=== PATIENT | female | born 1975 | race Caucasian/White ===

== ENCOUNTER 2017-03-02 05:43 | Emergency (ER) | payer BC ==
[2017-03-02 05:07] LABS: ASCORBIC ACID (UR NOT ORDER) NEG (NEG); BILIRUBIN, URINE NEGATIVE (NEG); ER URINALYSIS TAT 0 Hrs 00 Mins; KETONE, URINE NEGATIVE (NEG); LEUKOCYTE ESTERASE(NOT OR NEG (NEG); NITRITE (URINE) POS (NEG); WBC (NOT ORDERED) (RFLEX) 0 (0-5)
[2017-03-02 05:21] LABS: BUN (BLOOD UREA NITROGEN) 16 MG/DL (6-23); CALCIUM, SERUM 8.4 MG/DL (8.5-10.4); CHLORIDE, SERUM 109 MMOL/L (96-112); CO2 (CARBON DIOXIDE) 27 MMOL/L (24-34); CREATININE 0.99 MG/DL (0.55-1.02); GFR AFRICAN AMERICAN 83 ML/MIN (>=60); GFR NON AFRICAN AMERICAN 72 ML/MIN (>=60); GLUCOSE, SERUM 94 MG/DL (60-99); POTASSIUM, SERUM 4.1 MMOL/L (3.5-5.3); SODIUM, SERUM 144 MMOL/L (135-148)
[~2017-03-02 05:43] MED LIST: PROTONIX PO
== END 2017-03-02 05:45 | disposition home or self-care (01) ==
LOC: ER 05:43
PROVIDERS: Nurse Practitioner Acute Care
DX: N13.2 Hydronephrosis with renal and ureteral calculous obstruction (principal); K21.9 Gastro-esophageal reflux disease without esophagitis; Z88.5 Allergy status to narcotic agent; Z88.6 Allergy status to analgesic agent; Z79.899 Other long term (current) drug therapy
CPT/HCPCS: 74176; 80048; 81001; 96374; 99284; J1885

== ENCOUNTER 2017-03-04 15:53 | Observation (INO) | payer BC ==
--- NOTE | ~2017-03-04 | OP ---
Record Of Operation [facility] [address] [place]. [address] NAME: MIKEL JEFFERSON : 79 STATUS : ADM Javier PAT#: [id number] AGE: 41 ADM/REG DATE : 03/04/17 MR#: [id number] REPORT SERV DATE: 03/05/17 DICTATED BY: JOSS FIGUEROA DATE: 03/05/17 REPORT STATUS : Draft TRANSCRIBED BY: MODL DATE: 03/05/17 DATE OF PROCEDURE: 03/05/2017 PREOPERATIVE DIAGNOSIS: Left ureteral stone. POSTOPERATIVE DIAGNOSIS: Left ureteral stone. PROCEDURES PERFORMED: 1. Left ureteroscopy with stone extraction. 2. Cystoscopy, left retrograde pyelogram, left ureteral stent placement. SURGEON: Joss figueroa M.D. ANESTHESIA: General. COMPLICATIONS: None. DRAINS: None. SPECIMENS: Left ureteral stone for chemical analysis. INDICATION: Ms. Jefferson is a 41-year-old with a symptomatic 4 mm left distal ureteral stone. She has had flank pain and urinary urgency for one week. She presents for ureteroscopic treatment of the stone. TECHNIQUE: Informed consent was obtained. She was brought to the operating room. General anesthesia was administered. Genitals and perineum were prepped and draped in the lithotomy position in a sterile fashion. Rigid cystoscopy was performed. The urethra was normal. The bladder was unremarkable. There was a slight cystocele. Clear efflux on the right, sluggish efflux on the left. On fluoroscopic images, there was a 4 mm calcification over the expected course of the left distal ureter. A wire was passed. The left ureter was cannulated and the calcification was seen to be within the ureter. I passed the wire up to the kidney. I removed the cystoscope. A rigid ureteroscope was advanced over the wire. The left ureteral orifice did not require dilation. The scope passed atraumatically, identified the stone. The wire was removed. I basketed and extracted the left distal ureteral stone with an NGage basket. The stone was sent for chemical analysis. Rigid cystoscopy was performed, and a left retrograde pyelogram was performed. Left retrograde pyelogram showed minimal left hydronephrosis and hydroureter. All contrast drained promptly from the left ureter. I did not think that a ureteral stent will be necessary. The bladder was drained. The cystoscope was removed. She will be discharged to home later today. Record Of Operation [facility] [address] [place]. [address] NAME: MIKEL JEFFERSON : 79 STATUS : ADM Javier PAT#: [id number] AGE: 41 ADM/REG DATE : 03/04/17 MR#: [id number] REPORT SERV DATE: 03/05/17 DICTATED BY: JOSS FIGUEROA DATE: 03/05/17 REPORT STATUS : Draft TRANSCRIBED BY: LULÚ DATE: 03/05/17 [facility] Joss Figueroa M.D. / [id number] CC: Wayne Molina II, M.D.
--- NOTE | ~2017-03-04 | HP ---
History And Physical [id number] [place]. [address] NAME: MIKEL JEFFERSON : 79 STATUS : ADM Javier PAT#: [id number] AGE: 41 ADM/REG DATE : 03/04/17 MR#: [id number] REPORT SERV DATE: 03/05/17 DICTATED BY: JOSS FIGUEROA DATE: 03/04/17 REPORT STATUS : Draft TRANSCRIBED BY: MODL DATE: 03/04/17 DATE OF ADMISSION: 03/04/2017 CHIEF COMPLAINT: Left pelvic pain. HISTORY OF PRESENT ILLNESS: Mrs. Jefferson is a 41-year-old with no history of stones. She has had a left pelvic pain, left flank pain, and vaginal pain for the last week. A CT scan two days ago in the ER showed an obstructing left distal ureteral stone, 4 mm. She re- presented to the emergency room today with complaints of lower extremity swelling. Her creatinine was normal. She did take a diuretic for edema previously. She has held this with this recent stone. She has had no fever or chills. There has been nausea but no vomiting. She saw something small, 1-2 mm in the toilet today in the emergency room. PAST MEDICAL HISTORY: Tubal ligation, tonsillectomy, and kidney stones. MEDICATIONS: Tamsulosin, oral narcotic. ALLERGIES: NONE KNOWN. SOCIAL HISTORY: . Nonsmoker. REVIEW OF SYSTEMS: No chest pain, fevers, chills, or vomiting. Positive nausea, positive left flank pain intermittently, positive urinary frequency, positive dysuria, positive pelvic/vaginal pain. PHYSICAL EXAMINATION: Vitals per intake sheet: GENERAL: Pleasant, nontoxic appearing 41-year-old, in no acute distress. EARS: Sclerae anicteric. LUNGS: Clear. HEART: Regular rate and rhythm. CHEST: Clear anteriorly. ABDOMEN: Soft, nontender, nondistended. Obese, no palpable mass. No right or left CVA tenderness. Bladder is not distended. She is oriented to person, place, time, and situation. No supraclavicular or inguinal adenopathy. IMAGING: CT from two days ago shows a 4-5 mm left UVJ stone with hydronephrosis. Voided urine today is clear. Creatinine is 0.86. IMPRESSION: Left ureteral stone. PLAN: I will check a KUB. She is admitted for observation. If she is still symptomatic on 03/05/2017, then proceed with ureteroscopy or ESWL. [address] And [address] [facility] [address] NAME: MIKEL JEFFERSON : 79 STATUS : ADM Javier PAT#: [id number] AGE: 41 ADM/REG DATE : 03/04/17 MR#: [id number] REPORT SERV DATE: 03/05/17 DICTATED BY: JOSS FIGUEROA DATE: 03/04/17 REPORT STATUS : Draft TRANSCRIBED BY: LULÚ DATE: 03/04/17 [facility] Joss Figueroa M.D. / [id number] CC: Wayne Molina II, M.D.
[2017-03-04 15:33] LABS: ALBUMIN 3.8 G/DL (3.5-5.0); ALKALINE PHOSPHATASE 73 U/L (45-117); BUN (BLOOD UREA NITROGEN) 14 MG/DL (6-23); CALCIUM, SERUM 9.5 MG/DL (8.5-10.4); CHLORIDE, SERUM 103 MMOL/L (96-112); CO2 (CARBON DIOXIDE) 29 MMOL/L (24-34); CREATININE 0.86 MG/DL (0.55-1.02); GFR AFRICAN AMERICAN 99 ML/MIN (>=60); GFR NON AFRICAN AMERICAN 85 ML/MIN (>=60); GLUCOSE, SERUM 78 MG/DL (60-99); POTASSIUM, SERUM 3.4 MMOL/L (3.5-5.3); SGOT(AST) 16 U/L (5-40); SGPT(ALT) 29 U/L (5-65); SODIUM, SERUM 141 MMOL/L (135-148); TOTAL BILIRUBIN 0.6 MG/DL (0-1.2); TOTAL PROTEIN 7.8 G/DL (6.0-8.5)
[2017-03-04 15:39] LABS: BASOPHILS 0.3 %; BASOPHILS ABSOLUTE 0.03 10/3/uL (0.0-0.16); EOSINOPHILS 1.3 %; EOSINOPHILS ABSOLUTE 0.12 10/3/uL (0.0-0.53); ER CBC TAT 0 Hrs 03 Mins; HEMOGLOBIN 13.3 g/dL (12.0-16.0); IMMATURE GRANULOCYTES 0.2 %; IMMATURE GRANULOCYTES ABSOLUTE 0.02 10/3/uL (0.0-0.11); LYMPHOCYTES 26.9 %; LYMPHOCYTES ABSOLUTE 2.51 10/3/uL (0.67-4.30); MEAN CORPUS HGB CONC 33.3 g/dL (32.0-36.0); MEAN CORPUSCULAR HEMOGLOB 28.7 pg (26.0-34.0); MEAN CORPUSCULAR VOLUME 86.4 fL (80-100); MEAN PLATELET VOLUME 9.1 fL (9.2-13.0); MONOCYTES 7.2 %; MONOCYTES ABSOLUTE 0.67 10/3/uL (0.21-1.20); NEUTROPHILS 64.1 %; NEUTROPHILS ABSOLUTE 5.97 10/3/uL (2.02-8.40); PLATELET COUNT 378 10/3/uL (150-400); RBC DISTRIBUTION WIDTH 13.3 % (12.0-16.0); RED CELL COUNT 4.63 10/6/uL (4.0-5.6); WHITE BLOOD CELLS 9.3 10/3/uL (4.5-10.5)
[2017-03-04 15:40] LABS: MANUAL DIFF NO %
[2017-03-04 15:45] LABS: ASCORBIC ACID (UR NOT ORDER) NEG (NEG); BILIRUBIN, URINE NEGATIVE (NEG); KETONE, URINE NEGATIVE (NEG); WBC (NOT ORDERED) (RFLEX) 2 (0-5)
[2017-03-04 15:47] LABS: LEUKOCYTE ESTERASE(NOT OR TRACE (NEG)
[2017-03-04 15:48] LABS: NITRITE (URINE) NEG (NEG)
[2017-03-04 15:49] LABS: ER URINALYSIS TAT 0 Hrs 35 Mins
[2017-03-04] MEDS ORDERED: CIP5 PO (20:13)
[2017-03-04] MEDS ORDERED: NORCO1 TAB PO (20:14)
[2017-03-04] MEDS ORDERED: NEXIUM40 PO (20:14)
[2017-03-04] MEDS ORDERED: FLOMAX4 PO (20:15)
[2017-03-04] MEDS ORDERED: ZOFRAN8 PO (20:15)
[2017-03-04] MEDS ORDERED: AUG875 PO (20:16)
[2017-03-04] MEDS ORDERED: ANUSOL-HC25 MG PR (20:17)
[2017-03-04] MEDS ORDERED: HCTZ12.5 PO (20:17)
[2017-03-04] MEDS ORDERED: ZANTAC300 MG PO (20:17)
[2017-03-05] MEDS ORDERED: NORCO1 TA1 PO (14:12)
[2017-03-11 19:21] LABS: STONE COMPOSITION TWO DNR (())
== END 2017-03-05 19:07 | disposition home or self-care (01) ==
LOC: ER 15:53 → 4SO 17:17
PROVIDERS: Nurse Practitioner; Urology
PROC: BT1FYZZ Fluoroscopy of Left Kidney, Ureter and Bladder using Other Contrast (ICD-10-PCS; 2017-03-05)
PROC: 0TC78ZZ Extirpation of Matter from Left Ureter, Via Natural or Artificial Opening Endoscopic (ICD-10-PCS; principal; 2017-03-05 11:30)
DX: N13.2 Hydronephrosis with renal and ureteral calculous obstruction (principal); E66.9 Obesity, unspecified; K21.9 Gastro-esophageal reflux disease without esophagitis; Z98.51 Tubal ligation status; Z90.89 Acquired absence of other organs; Z98.890 Other specified postprocedural states
CPT/HCPCS: 74000; 74420; 80053; 81001; 82365; 83690; 84703; 85025; 96375; 99285; A9270-GY; C1758; C1769; G0378; J0690; J1885; J1956; J2250; J2270; J2405; J3010; Q9967